=== PATIENT | female | born 1945 | race Two or more races ===

== ENCOUNTER 2024-02-14 06:33 | Outpatient (RCR) | payer OTHER, SELFPAY | END 2024-02-15 12:12 | disposition home or self-care (01) | LOC: RST 06:33 | PROVIDERS: ATTENDING PHYSICIAN Internal Medicine Cardiovascular Disease | DX: I69.321 Dysphasia following cerebral infarction (principal); I69.318 Other symptoms and signs involving cognitive functions following cerebral infarction; I69.328 Other speech and language deficits following cerebral infarction | CPT/HCPCS: 92507; 92523; 97167; 97530; 97535; 97537 ==